=== PATIENT | female | born 1985 | race Caucasian/White ===

== ENCOUNTER 2016-09-11 08:32 | Day surgery (SDC) | payer BC ==
[2016-09-07 17:34] LABS: BASOPHILS 0.3 %; BASOPHILS ABSOLUTE 0.02 10/3/uL (0.0-0.16); EOSINOPHILS 1.8 %; EOSINOPHILS ABSOLUTE 0.14 10/3/uL (0.0-0.53); HEMATOCRIT 41.2 % (36.0-48.0); HEMOGLOBIN 13.8 g/dL (12.0-16.0); IMMATURE GRANULOCYTES 0.1 %; IMMATURE GRANULOCYTES ABSOLUTE 0.01 10/3/uL (0.0-0.11); LYMPHOCYTES 31.4 %; LYMPHOCYTES ABSOLUTE 2.41 10/3/uL (0.67-4.30); MEAN CORPUS HGB CONC 33.5 g/dL (32.0-36.0); MEAN CORPUSCULAR HEMOGLOB 29.5 pg (26.0-34.0); MONOCYTES 6.3 %; MONOCYTES ABSOLUTE 0.48 10/3/uL (0.21-1.20); NEUTROPHILS 60.1 %; NEUTROPHILS ABSOLUTE 4.62 10/3/uL (2.02-8.40); PLATELET COUNT 250 10/3/uL (150-400); RED CELL COUNT 4.68 10/6/uL (4.0-5.6); WHITE BLOOD CELLS 7.7 10/3/uL (4.5-10.5)
[2016-09-07 17:42] LABS: MANUAL DIFF NO %
[2016-09-07 17:53] LABS: BUN (BLOOD UREA NITROGEN) 9 MG/DL (6-23); CALCIUM, SERUM 9.1 MG/DL (8.5-10.4); CHLORIDE, SERUM 104 MMOL/L (96-112); CO2 (CARBON DIOXIDE) 27 MMOL/L (24-34); CREATININE 0.69 MG/DL (0.55-1.02); GFR AFRICAN AMERICAN 133 ML/MIN (>=60); GFR NON AFRICAN AMERICAN 114 ML/MIN (>=60); POTASSIUM, SERUM 3.5 MMOL/L (3.5-5.3); SODIUM, SERUM 139 MMOL/L (135-148)
[2016-09-07 17:54] LABS: GLUCOSE, SERUM 111 MG/DL (60-99)
--- NOTE | ~2016-09-11 | OP ---
Record Of Operation [facility] [address] [place]. 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 PROCEDURE: 1. Laparoscopic hysterectomy with bilateral salpingectomy, CPT code 87993. 2. [place] lymph node evaluation and pelvic lymph node sampling CPT code 37739 and CPT code 41627. SURGEON: Papa Geiger M.D. ESTIMATED BLOOD LOSS: 20 mL. FLUIDS IN: 2200 mL of crystalloid. COMPLICATIONS: None. FINDINGS AND INDICATIONS: This is a 31-year-old female, who presents after a cone biopsy with a pathologic stage IA squamous cell carcinoma of the cervix. She is now being taken to the operating room for simple hysterectomy. She had a preoperative CT PET scan that indicated an enlarged left pelvic lymph nodes. She was also injected with indocyanine green for sentinel lymph node identification. That one node also lit up intraoperatively, therefore the node was removed. The remainder of her lymph nodes appeared to be normal. Postprocedure, a cystoscopy was performed with excellent bilateral ureteral jets. No evidence of bladder defect. Prior to the induction of anesthesia, the patient was treated with Lovenox for DVT prophylaxis and also given prophylactic antibiotics. PROCEDURE IN DETAIL: The patient was taken to the operating room. She was placed in supine position for administration of general anesthesia. She was then placed in dorsal lithotomy position. Prepped and draped in the usual sterile fashion. The cervix was easily identified and injected with indocyanine green at 3 o'clock and 9 o'clock, approximately 4 mL in total were used. A SARAH ring was sutured to the patient's cervix and KAELA uterine manipulator was placed through the uterine cervix at the fundus. Our attention was then turned towards the anterior abdominal wall where an incision was made approximately 25 cm above the pubic symphysis and taken down to the underlying layer of fascia. The fascia was grasped with two sutures of 0 Vicryl, tented up, and entered sharply; the perineum was then tented up and entered sharply; and a laparoscopic trocar was placed under direct visualization. The abdominal cavity was visualized after it was insufflated, the above findings noted. The patient was docked to the laparoscopic robotic instrument. The remainder of the procedure was performed via [place]. The retroperitoneal space was opened via the round ligaments, which were grasped with bipolar cautery, cauterized and transected bilaterally. The mesosalpinx on both sides were taken down. The fallopian tubes were left attached to the uterus. The uterine ovarian vessels were then isolated, cauterized, and Record Of Operation [address] [address] NAME: TIA PAULINO : 81 STATUS : [facility] PAT#: [id number] AGE: 31 ADM/REG DATE : 09/11/16 MR#: [id number] REPORT SERV DATE: 09/16/16 DICTATED BY: PAPA GEIGER DATE: 09/16/16 REPORT STATUS : Draft TRANSCRIBED BY: KEL DATE: 09/16/16 transected bilaterally. The pelvic lymph node on the left was easily identified using Firefly technology with sharp dissection. The lymph nodes that were Firefly positive were removed with a combination of sharp dissection and cautery for hemostasis. The lymph node was placed into an EndoCatch bag and delivered through the trocar site. The uterine arteries were then skeletonized at the level of the cervix, grasped with bipolar cautery, cauterized and transected bilaterally. Anteriorly, a bladder flap was created and taken down to a level well below the cervix. The uterosacral cardinal complex was then taken down with unipolar cautery and circumferential incision was made around the cervix and vagina. The uterus, cervix, and bilateral fallopian tubes were removed through the vagina with the above findings noted. The vaginal cuff was then closed with a running stitch of #1 PDS V- Loc. Both ovaries were sutured to the pelvic sidewalls bilaterally to prevent torsion. The pelvis was irrigated with copious amounts of warm water. All pedicles were inspected and found to be hemostatic. The laparoscopic instruments were removed. The gas was expelled from the abdomen. The initial incision at the 12 mm port was closed with 0 Vicryl at the fascia. The skin sites were closed with 4-0 Vicryl at the skin and Dermabond was placed. Postprocedure, a cystoscopy was performed with excellent bilateral ureteral jets, no evidence of bladder defect. At the completion of the procedure, the anesthesia was reversed. The patient was extubated and brought to the recovery room in stable condition. ALISON/KEL Papa Geiger M.D. / [id number] CC: Papa Geiger M.D.
[~2016-09-11 08:32] MED LIST: LOESTRIN 21 PO
== END 2016-09-11 21:44 | disposition home or self-care (01) ==
LOC: SDC 08:32
PROVIDERS: Obstetrics & Gynecology Gynecologic Oncology
PROC: 0UTC4ZZ Resection of Cervix, Percutaneous Endoscopic Approach (ICD-10-PCS; 2016-09-11)
PROC: 0UT74ZZ Resection of Bilateral Fallopian Tubes, Percutaneous Endoscopic Approach (ICD-10-PCS; 2016-09-11)
PROC: 07TC4ZZ Resection of Pelvis Lymphatic, Percutaneous Endoscopic Approach (ICD-10-PCS; principal; 2016-09-11 10:30)
PROC: 0UT94ZZ Resection of Uterus, Percutaneous Endoscopic Approach (ICD-10-PCS; 2016-09-11 10:30)
DX: N87.9 Dysplasia of cervix uteri, unspecified (principal); Z88.5 Allergy status to narcotic agent
CPT/HCPCS: 36415; 80048; 84703; 85025; 86850; 86900; 86901; 88307; 88309; 88342; 93005; A9270-GY; J0694; J1170; J2250; J2405; J2710; J2795; J3010